=== PATIENT | male | born 1975 | race Caucasian/White ===

== ENCOUNTER 2018-09-06 18:26 | Inpatient (IN) | payer MEDICAID, OTHER ==
[~2018-09-06] VITALS: Ht 170.2 cm; Wt 117.0 kg
[~2018-09-06 18:26] MED LIST: IBUP200C5
--- NOTE | 2018-09-06 18:42 | NUR ---
PT BIBFAMILY FOR SOB WITH RUQ ABD PAIN; PT AAOX4, PT ON MONITOR, VSS, NAD NOTED, PENDING MD GIRON;L
[2018-09-06 19:19] LABS: BASOPHILS # (AUTO) 0.1 /CMM (0.0-0.2); BASOPHILS % (AUTO) 0.7 % (0.0-2.0); EOSINOPHILS % (AUTO) 1.7 % (0.0-6.0); HEMATOCRIT 43 % (39-51); HEMOGLOBIN 14.9 g/dL (13.5-17.5); LYMPHOCYTES # (AUTO) 2.8 /CMM (0.8-4.8); LYMPHOCYTES % (AUTO) 27.8 % (20.0-44.0); MEAN CORPUSCULAR HGB CONC 34 g/dl (31.0-36.0); MEAN CORPUSCULAR VOLUME 91 fL (80-96); MONOCYTES # (AUTO) 0.7 /CMM (0.1-1.30); MONOCYTES % (AUTO) 7.1 % (2.0-12.0); NEUTROPHILS # (AUTO) 6.3 /CMM (1.8-8.9); NEUTROPHILS % (AUTO) 62.7 % (43.0-81.0); PLATELET COUNT (AUTO) 239 /CMM (150-450); RED BLOOD CELL COUNT(AUTO) 4.76 MIL/uL (4.5-6.0)
[2018-09-06 19:58] LABS: BILIRUBIN,URINE SMALL (NEGATIVE); BLOOD, URINE Moderate Ery/uL (NEGATIVE); COLOR,URINE Dark (YELLOW); KETONES,URINE Trace (NEGATIVE); LEUKOCYTE ESTERASE ,URINE Negative (NEGATIVE); NITRITE, URINE Negative (NEGATIVE); PH,URINE 5.5 (5.0-8.0); PROTEIN,URINE >=300 mg/dl (NEGATIVE); UGLUCOSE Negative (NEGATIVE); UROBILINOGEN,URINE >=8.0 EU/dL (0.2)
[2018-09-06 20:07] LABS: BILIRUBIN,DIRECT 0.4 mg/dL (0.0-0.2); BILIRUBIN,TOTAL 0.8 mg/dL (0.2-1.0)
[2018-09-06 20:09] LABS: ALBUMIN 3.5 g/dL (3.4-5.0); TOTAL PROTEIN, SERUM 7.5 g/dL (6.4-8.2)
[2018-09-06 20:10] LABS: CALCIUM, SERUM 8.6 mg/dL (8.5-10.1); POTASSIUM 4.2 mmol/L (3.5-5.1)
[2018-09-06] MEDS ORDERED: CT SWABBABLE VALVE TRANS SET 1 EA INFUS.SET MC ONE (20:18)
[2018-09-06] MEDS ORDERED: IV NS 0.9% 250 ML IV ONE (20:18)
[2018-09-06] MEDS ORDERED: IOHEXOL-350 100 ML VIAL IV ONE (20:18)
[2018-09-06 20:29] LABS: APPEARANCE,URINE HAZY (CLEAR)
[2018-09-06 20:30] LABS: BACTERIA,URINE None seen /HPF (None Seen); CALCIUM OXALATE CRYSTALS,UR Moderate /HPF (None Seen); SQUAMOUS EPITHELIAL CELL,UR None Seen /HPF (None Seen); WBC,URINE 0-2 /HPF (0-3)
[2018-09-06] MEDS ORDERED: ASPIRIN 325 MG TABLET PO ONE (20:30)
--- NOTE | 2018-09-06 20:39 | NUR ---
CALLED [facility]. CORRECTIONAL CASE MANAGER WAS PAGED
--- NOTE | 2018-09-06 21:03 | NUR ---
CALLED MARY TO READ IMAGES
--- NOTE | 2018-09-06 21:18 | NUR ---
116-2 GORAN STODDARD NP
--- NOTE | 2018-09-06 21:30 | NUR ---
INTERIOR DESIGN PROFESSOR NOTE PATIENT IS AOX3, SPEECH CLEAR, ABLE TO MAKE NEEDS KNOWN, ON ROOM AIR, TELE SR, AMBULATORY, NO S/SX OF CARDIAC OR RESPIRATORY DISTRESS, LAC #18G PATENT FLUSHING WELL, SITE IS CLEAN AND DRY, SKIN KEPT CLEAN AND DRY, WILL CONTINUE TO MONITOR FOR ANY CHANGES IN CONDITION, SAFETY MAINTAINED AT ALL TIMES BED IN LOW LOCKED POSITION, CALL LIGHT WITHIN REACH.
[2018-09-06] MEDS ORDERED: ASPIRIN 325 MG TABLET ONE (21:36)
[2018-09-06 21:45] VITALS: BP 185/117
--- NOTE | 2018-09-06 21:48 | NUR ---
REPORT GIVEN TO PADMINI AYALA FOR [facility]; PT WILL BE TRANSPORTED TO 1ST FLOOR VIA [facility]S PROTOCOL.
[2018-09-06] MEDS ORDERED: ACETAMINOPHEN 325 MG TABLET PO PRN (22:00)
[2018-09-06] MEDS ORDERED: hydrALAZINE HCL IV 20 MG VIAL IV PRN (22:00)
[2018-09-06] MEDS ORDERED: MAG HYDROX/AL HYDROX/SIMETH 30 ML UDC PO PRN (22:00)
[2018-09-06] MEDS ORDERED: Z GUARD REMEDY 2 OZ OINT TP PRN (22:00)
[2018-09-06] MEDS ORDERED: HYDROCODONE/APAP 5/325MG 1 EACH TABLET PO PRN (22:00)
[2018-09-06] MEDS ORDERED: ONDANSETRON HCL/PF 4 MG/2 ML VIAL IVP PRN (22:00)
[2018-09-06] MEDS ORDERED: MAGNESIUM HYDROXIDE 30 ML UDC PO PRN (22:00)
[2018-09-06] MEDS: MORPHINE SULFATE INJ 2 MG/ML DISP.SYRIN IV PRN (22:26)
[2018-09-06] MEDS: FUROSEMIDE 40 MG/4 ML VIAL IV SCH (22:26)
[2018-09-06] MEDS: ENOXAPARIN SODIUM 40 MG/0.4 ML DISP.SYRIN SQ SCH (22:27)
[2018-09-07] VITALS: BP 150/98
[2018-09-07] MEDS: MORPHINE SULFATE INJ 2 MG/ML DISP.SYRIN IV PRN (02:33)
[2018-09-07 04:00] VITALS: BP 148/86
--- NOTE | 2018-09-07 07:10 | NUR ---
RN NOTES RECEIVED PT ON BED , A/Ox4, ON 2L O2 N/C , NO SOB NOTED, RESPIRATION EVEN UNLABORED,JEANINE ANY PAIN , ON TELE SR-ST WITH PVC'S ,L AC IV SITE G 18 CLEAN, DRY AND INTACT, SR UP x3, CALL LIGHT WITHIN EASY REACH, BED LOCKED AND IN LOWEST POSITION, CONTINUE TO MONITOR .
[2018-09-07 07:16] LABS: BASOPHILS # (AUTO) 0.1 /CMM (0.0-0.2); BASOPHILS % (AUTO) 0.7 % (0.0-2.0); EOSINOPHILS % (AUTO) 1.3 % (0.0-6.0); HEMATOCRIT 43 % (39-51); HEMOGLOBIN 14.8 g/dL (13.5-17.5); LYMPHOCYTES # (AUTO) 2.5 /CMM (0.8-4.8); LYMPHOCYTES % (AUTO) 25.9 % (20.0-44.0); MEAN CORPUSCULAR HGB CONC 35 g/dl (31.0-36.0); MEAN CORPUSCULAR VOLUME 90 fL (80-96); MONOCYTES # (AUTO) 0.7 /CMM (0.1-1.30); MONOCYTES % (AUTO) 6.8 % (2.0-12.0); NEUTROPHILS # (AUTO) 6.4 /CMM (1.8-8.9); NEUTROPHILS % (AUTO) 65.3 % (43.0-81.0); PLATELET COUNT (AUTO) 233 /CMM (150-450); RED BLOOD CELL COUNT(AUTO) 4.75 MIL/uL (4.5-6.0); WHITE BLOOD COUNT (AUTO) 9.8 K/uL (4.3-11.0)
[2018-09-07 07:50] LABS: ALBUMIN 3.6 g/dL (3.4-5.0); BILIRUBIN,DIRECT 0.3 mg/dL (0.0-0.2); CALCIUM, SERUM 8.8 mg/dL (8.5-10.1); CREATININE 0.8 mg/dL (0.6-1.3); PHOSPHORUS 3.9 mg/dL (2.5-4.9); POTASSIUM 3.8 mmol/L (3.5-5.1); TOTAL PROTEIN, SERUM 7.5 g/dL (6.4-8.2)
[2018-09-07 08:00] VITALS: BP 151/87
[2018-09-07] MEDS: FUROSEMIDE 40 MG/4 ML VIAL IV SCH ×3 (08:30→17:02)
[2018-09-07] MEDS ORDERED: ASPIRIN 81 MG TAB.CHEW PO SCH (09:00)
[2018-09-07 09:13] LABS: THYROID STIMULATING HORMONE 1.888 uIU/mL (0.358-3.74)
--- NOTE | 2018-09-07 09:54 | NUR ---
RN NOTES DOUBLE CHECKED WITH DR ESCTOO REGARDING MED -SURG STATUS , PT HAS STABLE HEART RHYTHM PER DR ESCOTO, OK TO DOWN GRADE TO MED SURG PER DR ESCOTO
--- NOTE | 2018-09-07 12:00 | NUR ---
RN NOTES PT UP AND WALKING IN THE ROOM , STABLE , NOT DISTRESS NOTED , CONTINUE TO MONITOR .
[2018-09-07] MEDS: METOPROLOL TARTRATE 50 MG TABLET PO SCH ×3 (12:39→23:50)
--- NOTE | 2018-09-07 12:50 | NUR ---
INITIAL ECHO SHOWED EF 30-35%~. ADVSD PADMINI SHAH AND DR. ESCOTO OF PRE FINDINGS.
[2018-09-07] MEDS ORDERED: CT SWABBABLE VALVE TRANS SET 1 EA INFUS.SET MC ONE (13:20)
[2018-09-07] MEDS ORDERED: IOHEXOL-350 100 ML VIAL IV ONE (13:20)
[2018-09-07] MEDS ORDERED: IV NS 0.9% 250 ML IV ONE (13:20)
[2018-09-07] MEDS ORDERED: METOPROLOL TARTRATE INJ 5 MG/5 ML AMPUL ONE ×3 (13:24→14:03)
[2018-09-07] MEDS ORDERED: METOPROLOL TARTRATE INJ 5 MG/5 ML AMPUL IVP ONE (15:30)
[2018-09-07] MEDS ORDERED: IV NS 0.9% 500 ML IV ONE (15:30)
[2018-09-07] MEDS ORDERED: NITROGLYCERIN 4.9 GM SPRAY SL ONE (15:30)
[2018-09-07 16:00] VITALS: BP 102/81
--- NOTE | 2018-09-07 18:08 | NUR ---
RN NOTES NO SIGNIFICANT CHANGES NOTED ON THIS SHIFT , NO DISTESS NOTED, WILL ENDOSE TO INTEGRATION PROJECT MANAGER NURSE FOR CONTINUITY OF CARE .
--- NOTE | 2018-09-07 19:10 | NUR ---
RN M/S NOTE PATIENT IS AOX3 RESTING IN BED, AT BEDSIDE, SPEECH CLEAR, ABLE TO MAKE NEEDS KNOWN, ON ROOM AIR, TELE SR, AMBULATORY, NO S/SX OF CARDIAC OR RESPIRATORY DISTRESS, LAC #18G PATENT FLUSHING WELL, SITE IS CLEAN AND DRY, SKIN KEPT CLEAN AND DRY, WILL CONTINUE TO MONITOR FOR ANY CHANGES IN CONDITION, SAFETY MAINTAINED AT ALL TIMES BED IN LOW LOCKED POSITION, CALL LIGHT WITHIN REACH.
[2018-09-07 20:00] VITALS: BP 135/89
[2018-09-07] MEDS: ENOXAPARIN SODIUM 40 MG/0.4 ML DISP.SYRIN SQ SCH (21:19)
[2018-09-08 04:00] VITALS: BP 141/80
[2018-09-08] MEDS: METOPROLOL TARTRATE 50 MG TABLET PO SCH (05:05)
[2018-09-08 07:16] LABS: BASOPHILS # (AUTO) 0.1 /CMM (0.0-0.2); BASOPHILS % (AUTO) 0.5 % (0.0-2.0); EOSINOPHILS % (AUTO) 1.6 % (0.0-6.0); HEMATOCRIT 43 % (39-51); HEMOGLOBIN 14.7 g/dL (13.5-17.5); LYMPHOCYTES # (AUTO) 2.9 /CMM (0.8-4.8); LYMPHOCYTES % (AUTO) 25.1 % (20.0-44.0); MEAN CORPUSCULAR HGB CONC 34 g/dl (31.0-36.0); MEAN CORPUSCULAR VOLUME 90 fL (80-96); MONOCYTES # (AUTO) 0.6 /CMM (0.1-1.30); MONOCYTES % (AUTO) 5.5 % (2.0-12.0); NEUTROPHILS # (AUTO) 7.8 /CMM (1.8-8.9); NEUTROPHILS % (AUTO) 67.3 % (43.0-81.0); PLATELET COUNT (AUTO) 261 /CMM (150-450); RED BLOOD CELL COUNT(AUTO) 4.74 MIL/uL (4.5-6.0); WHITE BLOOD COUNT (AUTO) 11.6 K/uL (4.3-11.0)
[2018-09-08 07:31] LABS: ALBUMIN 3.5 g/dL (3.4-5.0); CALCIUM, SERUM 9.2 mg/dL (8.5-10.1); PHOSPHORUS 5.3 mg/dL (2.5-4.9); POTASSIUM 3.7 mmol/L (3.5-5.1); TOTAL PROTEIN, SERUM 7.5 g/dL (6.4-8.2)
[2018-09-08 08:00] VITALS: BP 130/91
[2018-09-08] MEDS ORDERED: SPIRONOLACTONE 25 MG TABLET PO SCH (09:00)
[2018-09-08] MEDS ORDERED: LISINOPRIL (10MG) 10 MG TABLET PO SCH (09:00)
[2018-09-08] MEDS ORDERED: ASPIRIN 81 MG TAB.CHEW PO SCH (09:00)
[2018-09-08] MEDS ORDERED: CARVEDILOL 12.5 MG TABLET PO SCH (09:00)
[2018-09-08] MEDS ORDERED: ATORVASTATIN 40 MG TABLET PO SCH (09:00)
[2018-09-08 09:21] VITALS: BP 130/91
[2018-09-08] MEDS ORDERED: SPIR25TA PO (13:51)
[2018-09-08] MEDS ORDERED: CARV12.52 PO (13:51)
[2018-09-08] MEDS ORDERED: LISI10TA59 PO (13:51)
[2018-09-08] MEDS ORDERED: ATOR40TA PO (13:51)
[2018-09-08] MEDS ORDERED: ASPI-1169 PO (13:51)
--- NOTE | 2018-09-08 14:55 | NUR ---
RN/MS DISCHARGE NOTES PATIENT WAS DISCHARGED WITH GOING HOME IN PRIVATE VEHICLE. VITAL SIGNS STABLE AT TIME OF DISCHARGE, CALLED PHARMACY AND SENT OVER PRESCRIPTIONS WELL PROVIDED THEM TO PATIENT. DISCHARGE INSTRUCTIONS, PACKET, EDUCATION, AND EXIT CARE PROVIDED. PATIENT VERBALIZED UNDERSTANDING.
== END 2018-09-08 14:33 | disposition home or self-care (01) | DRG 194 ==
LOC: ER 18:33 → TELE1 21:18 → MEDSG1 09-07 10:06
PROVIDERS: ADMIT Nurse Practitioner Acute Care; ATTEND Hospitalist
DX: I11.0 Hypertensive heart disease with heart failure (principal); I21.A1 Myocardial infarction type 2; I42.9 Cardiomyopathy, unspecified; K76.0 Fatty (change of) liver, not elsewhere classified; J98.11 Atelectasis; I16.0 Hypertensive urgency; Z86.718 Personal history of other venous thrombosis and embolism; R74.0 Nonspecific elevation of levels of transaminase and lactic acid dehydrogenase [LDH]; K80.20 Calculus of gallbladder without cholecystitis without obstruction; Z98.890 Other specified postprocedural states; Z72.0 Tobacco use; F12.929 Cannabis use, unspecified with intoxication, unspecified; E66.01 Morbid (severe) obesity due to excess calories; Z68.41 Body mass index [BMI] 40.0-44.9, adult; I50.21 Acute systolic (congestive) heart failure
CPT/HCPCS: 36415; 71045-TC; 75574; 76700-TC; 80048-TC; 80053-TC; 80061-TC; 80076-TC; 81000-TC; 83690-TC; 83735-TC; 83880; 84100-TC; 84443-TC; 84484-TC; 85025-TC; 85730-TC; 87081-TC; 93307-TC; G0378; J0360; J1650; J1940; J2270; J3490; J7050; Q9967